=== PATIENT | female | born 1955 | race Caucasian/White ===

== ENCOUNTER → 2021-04-13 | Outpatient (CLI) | payer MEDICARE, OTHER | LOC: COL.RAD 12:02 | DX: M70.52 Other bursitis of knee, left knee (principal) | CPT/HCPCS: J3301 ==

== ENCOUNTER → 2021-10-29 | Outpatient (RCR) | payer MEDICARE, OTHER | END | disposition home or self-care (01) | LOC: WSPT → WSC 10-15 09:45 → WSPT 10-24 09:00 | DX: M17.10 Unilateral primary osteoarthritis, unspecified knee (principal); M54.50 Low back pain, unspecified; G89.29 Other chronic pain ==

== ENCOUNTER 2021-11-09 12:45 | Outpatient (RCR) | payer MEDICARE, OTHER | END 2021-11-29 | disposition still patient (30) | LOC: WSPT | DX: M17.10 Unilateral primary osteoarthritis, unspecified knee (principal) ==